=== PATIENT | female | born 1965 | race Caucasian/White ===

== ENCOUNTER → 2020-05-27 09:29 | Outpatient (CLI) | payer BC, SELFPAY ==
--- NOTE | 2020-05-27 | DI.MRI.S_ITS ---
PROCEDURE: MR CERVICAL SPINE WO CON INDICATIONS: Ankylosing hyperostosis [[place]], cervical region TECHNIQUE: Noncontrast sagittal T1 spin echo and T2 fast spin echo, sagittal STIR, foraminal oblique sagittal T2 fast spin echo, and axial gradient echo or T2 fast spin echo through the cervical spine. COMPARISON: [facility], CR, XR CERVICAL SPINE 4V OR 5V, 05/27/2020, 10:07. [facility], CR, CERVICAL SPINE 2 OR 3 VIEWS, 02/21/2014, 13:45. FINDINGS: Image quality: Excellent. Alignment and Curvature: There is normal bony alignment. Bones: Postsurgical changes compatible C5-C7 ACDF. Marrow demonstrates normal overall signal where well visualized. Spinal Cord: Visualized spinal cord has normal size and signal. No cerebellar tonsillar herniation. Paraspinous Soft Tissues: No paravertebral masses. Prevertebral soft tissues are normal in thickness. C2-C3: Loss of disc signal. No central stenosis. No neural foraminal narrowing. No neural compression. C3-C4: Loss of disc signal. No central stenosis. No neural foraminal narrowing. No neural compression. C4-C5: Loss of disc signal. Mild, diffuse disc bulge. No central stenosis. No neural foraminal narrowing. No neural compression. C5-C6: Status post fusion. No central stenosis. No neural foraminal narrowing. No neural compression. C6-C7: Status post fusion. Mild bilateral uncovertebral joint hypertrophy. No central stenosis. Mild bilateral neural foraminal narrowing. No neural compression. C7-T1: Loss of disc signal. No central stenosis. No neural foraminal narrowing. No neural compression. IMPRESSION: 1. Status post C5-C7 ACDF. 2. No central stenosis. 3. Mild bilateral C6-C7 neural foraminal narrowing. 4. No neural compression. Dictated by: Anne Bell MD, PhD on 05/29/2020 at 12:25 Approved by: Anne Bell MD, PhD on 05/29/2020 at 12:37
--- NOTE | 2020-05-27 | DI.RAD.S_ITS ---
PROCEDURE: XR CERVICAL SPINE 4V OR 5V INDICATIONS: NECK PAIN TECHNIQUE: 5 views of the cervical spine were acquired, including flexion and extension views in the lateral projection. COMPARISON: [facility], CR, CERVICAL SPINE 2 OR 3 VIEWS, 02/21/2014, 13:45. [facility], MR, MR CERVICAL SPINE WO CON, 05/27/2020, 9:45. FINDINGS: Bones: Postoperative changes are seen, with an anterior cervical spine fusion plate at the C5 through C7 levels. The fusion plate appears well seated. No findings of hardware failure or hardware loosening are seen. Disc spacers are seen throughout the fused region. No displaced fractures are seen. No suspicious lytic or blastic lesions are seen. On the neutral position image, there is straightening of the normal cervical lordosis. On flexion-extension views, there is limited range of motion, without abnormal subluxation. No abnormal motion can be seen within the fused region. Soft tissues: Prevertebral soft tissues are normal in thickness. The visualized lung apices are unremarkable. Incidental note is made of a metallic body ornamentation artifact. IMPRESSION: Unremarkable C5 through C7 anterior fixation hardware. Limited range of motion, without abnormal subluxation. Dictated by: Jairon Macias M.D. on 05/27/2020 at 16:27 Approved by: Jairon Macias M.D. on 05/27/2020 at 16:28
== END ==
PROVIDERS: Family Provider Nurse Practitioner; PCP Nurse Practitioner Family; Referring Provider Neurological Surgery; Visit Provider Neurological Surgery
DX: M48.12 Ankylosing hyperostosis [Forestier], cervical region (principal); M48.02 Spinal stenosis, cervical region; Z98.1 Arthrodesis status
CPT/HCPCS: 72050; 72141